=== PATIENT | male | born 1975 | race African-American/Black ===

== ENCOUNTER 2017-03-13 09:24 | Emergency (ER) | payer MEDICAID ==
[~2017-03-13] VITALS: Ht 175.3 cm; Wt 87.5 kg
[2017-03-13 09:28] VITALS: BP 152/99
== END 2017-03-13 12:10 | disposition home or self-care (01) ==
LOC: ER 09:54
DX: B35.4 Tinea corporis (principal); I10 Essential (primary) hypertension; F12.10 Cannabis abuse, uncomplicated
CPT/HCPCS: 99282

== ENCOUNTER 2022-07-06 00:05 | Emergency (ER) | payer MEDICAID ==
[~2022-07-06] VITALS: Ht 182.9 cm; Wt 98.0 kg
[2022-07-06] MEDS ORDERED: IBUP-2029 MT (01:29)
[2022-07-06] MEDS ORDERED: CYCL10TA21 MT (01:29)
[2022-07-06] MEDS ORDERED: KETOROLAC 60MG/2ML VIAL IM ONE (01:30)
[2022-07-06 02:03] VITALS: BP 148/92
[2022-07-06] MEDS ORDERED: LIDO700A30 TP (09:13)
[2022-07-06] MEDS ORDERED: METH-653 MT (09:13)
== END 2022-07-06 03:27 | disposition home or self-care (01) ==
LOC: ER 00:05
DX: M54.41 Lumbago with sciatica, right side (principal); I10 Essential (primary) hypertension; F12.90 Cannabis use, unspecified, uncomplicated
CPT/HCPCS: 96372; 99283; J1885

== ENCOUNTER 2022-07-06 03:38 | Emergency (ER) | payer MEDICAID ==
[~2022-07-06] VITALS: Ht 175.3 cm; Wt 93.0 kg
[~2022-07-06 03:38] MED LIST: CYCL10TA21 MT; IBUP-2029 MT
[2022-07-06 04:07] LABS: EOSINOPHILS % 1.3 % (0.0-5.0); HEMATOCRIT. 43.9 % (42.0-52.0); HEMOGLOBIN. 14.8 g/dL (14.0-18.0); LYMPHOCYTES % 32.7 % (20.0-50.0); MEAN CORPUSCULAR HEMOGLOBIN 29.4 pg (28.0-32.0); MEAN CORPUSCULAR VOLUME 87.5 fL (80.0-94.0); MEAN PLATELET VOLUME 8.8 fl (7.4-10.4); MONOCYTES % 8.6 % (2.0-8.0); NEUTROPHILS % 56.4 % (40.0-76.0); PLATELET 383 x1000/uL (130-400); RED BLOOD CELL COUNT 5.02 mill/uL (4.7-6.1); RED CELL DISTRIBUTION WIDTH 14.3 % (11.6-14.6)
[2022-07-06 04:15] LABS: CHLORIDE 104 mEq/L (98-107)
[2022-07-06 05:00] LABS: CLARITY URINE CLEAR (CLEAR); COLOR URINE YELLOW (YELLOW); KETONES URINE NEGATIVE (NEGATIVE); LEUKOCYTE ESTERASE URINE NEGATIVE (NEGATIVE); NITRITE URINE NEGATIVE (NEGATIVE); OCCULT BLOOD URINE NEGATIVE (NEGATIVE); PROTEIN URINE TRACE (NEGATIVE); SPECIFIC GRAVITY URINE 1.021 (1.005-1.030)
[2022-07-06] MEDS ORDERED: KETOROLAC 60MG/2ML VIAL IM ONE (08:45)
[2022-07-06] MEDS ORDERED: ACETAMINOPHEN 325MG TABLET PO ONE (08:45)
[2022-07-06] MEDS ORDERED: LIDOCAINE 5% PATCH TOP SCH (08:45)
[2022-07-06] MEDS ORDERED: LIDO700A30 TP (09:13)
[2022-07-06] MEDS ORDERED: METH-653 MT (09:13)
[2022-07-06 09:24] VITALS: BP 148/98
== END 2022-07-06 09:26 | disposition home or self-care (01) ==
LOC: ER 03:38
DX: R10.31 Right lower quadrant pain (principal); M54.9 Dorsalgia, unspecified; G89.29 Other chronic pain; I10 Essential (primary) hypertension
CPT/HCPCS: 36415; 74176; 80053; 81003; 83690; 85025; 96372; 99285; J1885; Z7610